=== PATIENT | male | born 1955 | race Caucasian/White ===

== ENCOUNTER 2022-08-29 09:31 | Emergency (ER) | payer MEDICARE, SELFPAY ==
[2022-08-29 09:44] VITALS: BP 146/71; PULSE 89; RESP 20; TEMP 36.6; O2SAT 97; BMI 24.6
--- NOTE | 2022-08-29 10:04 | ED_ITS ---
HPI - General Adult General Chief complaint: General Medical Stated complaint: coughing up blood stuffy nose Time Seen by Provider: 08/29/22 09:55 Source: patient, family (sister) and RN notes reviewed Mode of arrival: ambulatory Limitations: no limitations History of Present Illness HPI narrative: 67-year-old male past medical history significant for bipolar disorder, depression, [employer] exposure presents for evaluation of congestion, stuffy nose. Patient reports that he has been approximately 9 months no [facility] returned about a month ago. He reports in the last month he has had on and off nasal congestion and phlegm in his throat. He reports difficulty sleeping at night due to the congestion reports that he is unable to breathe through his nose. He denies any fevers or chills. Reports she has been using [id number] medications including nasal sprays, oral decongestants without much improvement in symptoms He reports overall discomfort as 6/10 Patient reports that he went to [facility] About a week ago and a chest x-ray which is reportedly negative patient denies any history of asthma, COPD. He has remote history of smoking next a smoker. No history of DVT or PE. Patient denies any leg swelling, leg cramps. Of note, the patient reported triage that he was ?coughing up blood. Upon further discussion, patient reports that he actually had blood clots when he blew his nose, not actually when he was coughing. Related Data Previous Rx's Medication Instructions Recorded amoxicillin 500 mg capsule 500 mg PO TID #30 caps 08/29/22 Allergies Allergy/AdvReac Type Severity Reaction Status Date / Time No Known Allergies Allergy Verified 08/29/22 10:15 Review of Systems Constitutional: Constitutional: Reports as per HPI, Denies chills, Denies fatigue and Reports headache(s) ENT: Reports facial pain, Reports headache(s), Reports nasal congestion, Reports nasal discharge, Reports post nasal drip and Reports sinus pressure Cardiovascular: Cardiovascular: Denies chest pain and Denies dyspnea Respiratory: Respiratory: Denies dyspnea Gastrointestinal: Gastrointestinal: Denies abdominal pain, Denies constipation and Denies vomiting Genitourinary: Genitourinary: Denies difficulty urinating and Denies dysuria Neurologic: Reports headache(s) Endocrine: Endocrine: Denies fatigue PMFSH Social History Social History Advance Directives: No Advance Directives Information Provided: No Physical Exam ED Vital Signs: Vital Signs - 24 hr 08/29/22 09:44 Temperature 97.9 F Pulse Rate 89 Respiratory Rate 20 Blood Pressure 146/71 H Pulse Oximetry 97 Oxygen Delivery Method Room Air BMI result Body Mass Index 24.6 Const General: healthy appearing, comfortable, no acute distress, alert and awake Nutritional Appearance: well nourished Orientation/consciousness: patient oriented x3 HENMT Face and sinus: Yes sinus tenderness and Yes Facial tenderness on exam of face and sinuses Mouth: Normal oral and palatal mucosa present, tongue normal, no audible dysphonia, no muffled voice and Abnormal oral and palatal mucosa present Throat: Yes posterior oropharynx normal, Yes uvula midline and No uvula laterally displaced Eyes Eyelids: Yes eyelids normal Conjunctivae: conjunctivae normal Sclerae: sclerae normal Corneas: corneas normal Pupils: Equal, round and reactive pupils present EOM: EOMs intact bilaterally Resp Effort & Inspection: normal respiratory effort, able to speak in complete sentences, no audible wheezes and not labored Skin General skin exam: no rashes or lesions noted and elasticity normal Lesions: no lesions Rashes: no rashes Neuro General: patient oriented x3 Cranial nerves: Yes Equal, round and reactive pupils present Extrem General: Yes full ROM Medical Decision Making Medical Decision Making MDM Narrative: The patient has 1 month of congestion, stuffy nose. He has associated postnasal drip and reports difficulty breathing through his nose. His lungs are clear to auscultation for vital signs are normal as well apparently the patient is afebrile. Low suspicion for pneumonia. The patient likely has acute sinusitis. He has tried hqek-cks-[id number] medications for last month a minimal improvement. Feels his inability to patient with a course of amoxicillin and he will continue zeqm-[id number] medications. Given that the lung sounds are clear and vital signs are stable, x-ray of the chest for this time. Differential Diagnosis Differential Diagnoses: The differential diagnosis associated with the presentation includes (Acute sinusitis, Rhinitis, Virus infection, upper respiratory infection) Acute sinusitis Discharge Plan Discharge Clinical Impression: Acute bacterial sinusitis Patient Disposition: Home, Self-Care Instructions: Sinusitis (ED) Additional Instructions: Take amoxicillin 3 times daily for the next 10 days. He may continue to use whichever njif-dty-qnjgonl decongestant seem to help the best. Denies use of all of decongestants at the same time. He may also benefit from a humidifier next to her bed at night. 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
== END 2022-08-29 10:34 | disposition home or self-care (01) ==
PROVIDERS: Emergency Provider Emergency Medicine
DX: J01.90 Acute sinusitis, unspecified (principal); B96.89 Other specified bacterial agents as the cause of diseases classified elsewhere
CPT/HCPCS: 99283

== ENCOUNTER 2022-09-02 08:35 | Emergency (ER) | payer MEDICARE, SELFPAY ==
--- NOTE | ~2022-09-02 | CT_ITS ---
CT SINUS WITHOUT IV CONTRAST CLINICAL INFORMATION: Question sinusitis. COMPARISON: None TECHNIQUE: A multidetector CT acquisition of the sinuses is obtained without IV contrast. This CT examination was performed using dose optimization techniques as appropriate, variously including the following: *Automated exposure control *Adjustment of mA and/or kV according to patient size (this includes techniques or standardized protocols for targeted exams where dose is matched to indication/reason for exam; i.e. extremities or head) *Use of iterative reconstruction technique FINDINGS: There is mild mucosal thickening involving the maxillary sinuses bilaterally, there is moderate mucosal thickening involving the ethmoid air cells bilaterally, and there is mild mucosal thickening within the right frontal sinus. Fovea ethmoidalis and olfactory grooves are symmetric in depth. The bony orbits are intact. Internal carotid arteries remain well covered with bone. The TMJs are unremarkable. The mastoid air cells and the middle ear cavities are clear. There is significant rightward deviation of the cartilaginous nasal septum and the bony cartilaginous nasal septal junction. There is significant leftward deviation of the posterior bony nasal septum with a leftward directed septal spur that uplifts the left middle turbinate and that contacts the lateral wall of the left nasal cavity. CT/CT sinus wo IV con IMPRESSION: - There is mild mucosal thickening involving the maxillary sinuses bilaterally, there is moderate mucosal thickening involving the ethmoid air cells bilaterally, and there is mild mucosal thickening within the right frontal sinus. There are no fluid levels. - There is significant rightward deviation of the cartilaginous nasal septum and the bony cartilaginous nasal septal junction. There is significant leftward deviation of the posterior bony nasal septum with a leftward directed septal spur that uplifts the left middle turbinate and that contacts the lateral wall of the left nasal cavity.
--- NOTE | ~2022-09-02 | XR_ITS ---
EXAMINATION: XR CHEST CLINICAL INFORMATION: Cough COMPARISON: None TECHNIQUE: 2 views of the chest were obtained. FINDINGS: The cardiac and mediastinal contours are normal. The lungs are clear. No pleural effusion or pneumothorax. Old left lateral ninth rib fracture. Degenerative changes of the spine. XR/XR chest 2V IMPRESSION: No evidence for acute disease in the chest.
[2022-09-02 08:49] VITALS: BP 140/84; BP 148/82; PULSE 69; PULSE 83; RESP 18; TEMP 36.7; O2SAT 96; BMI 24.1
--- NOTE | 2022-09-02 09:13 | ED_ITS ---
History of Present Illness General Chief Complaint: Epistaxis Stated Complaint: Nasal bleeding/congestion x 3 days per EMS Time Seen by Provider: 09/02/22 09:05 Source: patient and EMS Limitations: no limitations History of Present Illness HPI Narrative: This is a 67 years old male presented to the emergency department complaining of epistaxis sinus congestion. The bleeding is now resolved. The he was seen in the emergency department on August 29 started on azithromycin for sinusitis but is not better Location: Yes bilateral nares Onset/current episode: Yes week(s) (1) Duration: Yes now resolved Related Data Previous Rx's Medication Instructions Recorded azithromycin 250 mg tablet See Rx Instructions PO .COMPLEX #6 08/29/22 tabs cefuroxime axetil 500 mg tablet 500 mg PO BID 10 days #20 tabs 09/02/22 fluticasone propionate 50 1 spray intranasal BID #16 grams 09/02/22 mcg/actuation nasal spray,suspension (24 Hour Allergy Relief) Allergies Allergy/AdvReac Type Severity Reaction Status Date / Time No Known Allergies Allergy Verified 08/29/22 10:15 Review of Systems Constitutional: Constitutional: Reports no additional constitutional complaints Eyes: Eyes: Reports no additional eye complaints Cardiovascular: Cardiovascular: Reports no additional cardiovascular complaints Psychiatric: Psychiatric: Reports no additional psychiatric complaints [facility] Past Medical History [facility] Narrative: History of sinusitis Social History Social History Alcohol intake: never Smoked in Last 30 Days: No Advance Directives: No Advance Directives Information Provided: No Physical Exam Vital Signs: Vital Signs: Last Vital Signs Temp 98.0 F 09/02/22 10:57 Pulse 71 09/02/22 10:57 Resp 18 09/02/22 10:57 BP 134/83 09/02/22 10:57 Pulse Ox 96 09/02/22 10:57 O2 Del Method 09/02/22 10:57 BMI result Body Mass Index 24.1 Const: General: cooperative and healthy appearing Nutritional Appearance: average body habitus Orientation/consciousness: patient oriented x3 HEENT: Head: Yes normal to inspection General nose exam: Normal external nose present and Normal nares present (No bleeding at this time) Face and sinus: Yes normal facial exam Mouth: Normal oral and palatal mucosa present Throat: Yes posterior oropharynx normal Neck: Neck: Yes normal visual inspection Chest: Chest palpation & inspection: normal inspection of the chest Resp: Effort & Inspection: normal respiratory effort and able to speak in complete sentences Auscultation: clear to auscultation bilaterally Cardio: Jugular venous distension: no JVD Rate: regular rate Rhythm: regular rhythm GI: Inspection: Yes normal to inspection Palpation (GI): Soft to palpation, not firm and nontender Skin: General skin exam: no rashes or lesions noted and elasticity normal Rashes: no rashes Neuro: General: patient oriented x3 Extrem: General: Yes normal to inspection and Yes full ROM Course Reevaluation(s) Reevaluation #1: Labs are normal no for the epistaxis, CT showed some sinusitis will discharge home on Flonase and will give a different AB than azythromicin Time: 11:56 Medical Decision Making Medical Decision Making [facility] Narrative: Presented with epistaxis labs normal chest x-ray normal CT shows sinusitis, he was given azithromycin for this which is not the optimal antibiotic for pneumococcus Differential Diagnosis Differential Diagnoses: The differential diagnosis associated with the presentation includes epistaxis/sinusitis/pneumonia Admission/Observation Consideration of admission/observation: Escalation of care including admission/observation considered Lab Data [facility] Lab Attestation statement: I reviewed the patient's lab results. 09/02/22 09:43 09/02/22 09:43 Labs: Lab Results 09/02/22 09/02/22 09/02/22 Range/Units 09:43 09:43 09:43 WBC 5.5 (4.8-10.8) X10*3/uL RBC 5.32 (4.60-5.80) X10*6/uL Hgb 15.7 (14.0-18.0) g/dl Hct 45.9 (42.0-52.0) % MCV 86.3 (80.0-98.0) fL MCH 29.5 (27.0-33.0) pg MCHC 34.2 (31.0-36.0) g/dl RDW 13.1 (11.0-16.0) % Plt Count 239 (160-400) X10*3/uL MPV 9.2 L (9.4-12.4) fL Immature Gran % (Auto) 0.2 (0.0-0.4) % Neut % (Auto) 67.2 (45-73) % Lymph % (Auto) 22.3 (20-40) % Sandoval % (Auto) 8.0 (2-11) % Eos % (Auto) 1.8 (0-4) % Baso % (Auto) 0.5 (0-2) % Lymph # (Auto) 1.2 (1.2-4.9) X10*3/uL Sandoval # (Auto) 0.4 (0.1-1.2) X10*3/uL Eos # (Auto) 0.1 (0.0-0.4) X10*3/uL Baso # (Auto) 0.0 (0.0-0.2) X10*3/uL Abs Immat Gran (auto) 0.01 (0.00-0.03) X10*3/uL Absolute Neuts (auto) 3.7 (2.0-8.3) x10*3/uL Absolute Nucleated RBC 0.000 (0.0-0.012) X10*3/uL Nucleated RBC % (auto) 0.0 (0.0-0.2) /100WBC PT 10.3 (10.0-13.1) SEC INR 0.9 (0.9-1.1) APTT 28.3 (26.0-36.4) SEC Sodium 138 (135-145) mmol/L Potassium 4.1 (3.3-5.1) mmol/L Chloride 108 (96-108) mmol/L Carbon Dioxide 20 L (22-29) mmol/L Anion Gap 14 (12-20) BUN 18 H (9-16) mg/dL Creatinine 0.88 (0.5-1.4) mg/dL Estim Creat Clear Calc 76.6 Estimated GFR > 60 Random Glucose 95 (60-115) mg/dL Calcium 9.5 (8.4-10.2) mg/dL Total Bilirubin 1.2 H (0.0-1.0) mg/dL AST 20 (5-37) U/L ALT 28 (0-40) U/L Alkaline Phosphatase 109 (39-117) U/L Total Protein 6.8 (6.5-8.0) g/dL Albumin 4.1 (3.5-5.0) g/dL Independent Interpretation I performed an independent interpretation of an: CT Scan Interpretation: arteries remain well covered with bone. The TMJs are unremarkable. The mastoid air cells and the middle ear cavities are clear. There is significant rightward deviation of the cartilaginous nasal septum and the bony cartilaginous nasal septal junction. There is significant leftward deviation of the posterior bony nasal septum with a leftward directed septal spur that uplifts the left middle turbinate and that contacts the lateral wall of the left nasal cavity. CT/CT sinus wo IV con IMPRESSION: - There is mild mucosal thickening involving the maxillary sinuses bilaterally, there is moderate mucosal thickening involving the ethmoid air cells bilaterally, and there is mild mucosal thickening within the right frontal sinus. There are no fluid levels. ? - There is significant rightward deviation of the cartilaginous nasal septum and the bony cartilaginous nasal septal junction. There is significant leftward deviation of the posterior bony nasal septum with a leftward directed septal spur that uplifts the left middle turbinate and that contacts the lateral wall of the left nasal cavity. ? Dictated By: Orion Branch MD Signed By: <Electronically signed by Orion Branch MD in [place]> 09/02/22 0952 Discharge Plan Discharge Clinical Impression: Epistaxis, Sinusitis Patient Disposition: Home, Self-Care Instructions: Sinusitis (ED), Nosebleed (ED) Additional Instructions: He should follow-up with your primary care physician call today make an ap pointment. Prescriptions: New cefuroxime axetil 500 mg tablet 500 mg PO BID 10 Days Qty: 20 0RF fluticasone propionate [24 Hour Allergy Relief] 50 mcg/actuation spray,suspension 1 spray intranasal BID Qty: 16 0RF Rx Instructions: administer into each nostril No Action azithromycin 250 mg tablet See Rx Instructions .ROUTE .COMPLEX Qty: 6 0RF Rx Instructions: For 250 mg dose pack: take 500 mg today (day 1), then 250 mg for 4 days (days 2-5) Referrals: Physician,None [Primary Care Provider] - 3 days Interventions: ED Discharge Assessment Last Done: 09/02/22 12:13 Discharge Date/Time: 09/02/22 12:15
[2022-09-02 09:48] LABS: MANUAL DIFF FLAG NO
[2022-09-02 09:51] LABS: Basophils Percent Auto 0.5 % (0-2); Eosinophils Absolute Auto 0.1 X10*3/uL (0.0-0.4); Eosinophils Percent Auto 1.8 % (0-4); Hematocrit 45.9 % (42.0-52.0); Hemoglobin 15.7 g/dl (14.0-18.0); Imm Gran Abs Auto 0.01 X10*3/uL (0.00-0.03); Imm Gran Pct Auto 0.2 % (0.0-0.4); Lymphocytes Absolute Auto 1.2 X10*3/uL (1.2-4.9); Lymphocytes Percent Auto 22.3 % (20-40); Mean Corpuscular HGB Conc 34.2 g/dl (31.0-36.0); Mean Corpuscular Hemoglobin 29.5 pg (27.0-33.0); Mean Corpuscular Volume 86.3 fL (80.0-98.0); Mean Platelet Volume 9.2 fL (9.4-12.4); Monocytes Absolute Auto 0.4 X10*3/uL (0.1-1.2); Neutrophils Absolute Auto 3.7 x10*3/uL (2.0-8.3); Neutrophils Percent Auto 67.2 % (45-73); Platelet Count 239 X10*3/uL (160-400); Red Blood Count 5.32 X10*6/uL (4.60-5.80); Red Cell Distribution Width 13.1 % (11.0-16.0); White Blood Count 5.5 X10*3/uL (4.8-10.8)
[2022-09-02 10:05] LABS: INTERNATIONAL NORM RATIO 0.9 (0.9-1.1); Prothrombin Time 10.3 SEC (10.0-13.1)
[2022-09-02 10:08] LABS: Partial Thromboplastin Time 28.3 SEC (26.0-36.4)
[2022-09-02 10:20] LABS: Alanine Aminotransferase 28 U/L (0-40); Albumin Level 4.1 g/dL (3.5-5.0); Alkaline Phosphatase 109 U/L (39-117); Anion Gap 14 (12-20); Aspartate Amino Transferase 20 U/L (5-37); Bilirubin Total 1.2 mg/dL (0.0-1.0); Blood Urea Nitrogen 18 mg/dL (9-16); Calcium 9.5 mg/dL (8.4-10.2); Carbon Dioxide 20 mmol/L (22-29); Chloride 108 mmol/L (96-108); Creatinine Clr Calc Pharmacy 76.6; Estimated Glomerular Filt Rate > 60; Glucose Random 95 mg/dL (60-115); Potassium 4.1 mmol/L (3.3-5.1); Sodium 138 mmol/L (135-145); Total Protein 6.8 g/dL (6.5-8.0)
[2022-09-02 10:57] VITALS: BP 134/83; PULSE 71; RESP 18; TEMP 36.7; O2SAT 96
== END 2022-09-02 12:15 | disposition home or self-care (01) ==
PROVIDERS: Emergency Provider Emergency Medicine
DX: R04.0 Epistaxis (principal); J32.8 Other chronic sinusitis
CPT/HCPCS: 36415; 70486; 71046; 80053; 85025; 85610; 85730; 99284